=== PATIENT | male | born 1975 | race Caucasian/White ===

== ENCOUNTER 2018-08-27 07:29 | Emergency (ER) | payer OTHER, BC ==
[2018-08-27 07:59] VITALS: BP 139/104; PULSE 89; TEMP 99; BMI 31.1
--- NOTE | 2018-08-27 08:02 | PDOC ---
History of Present Illness - General Stated Complaint: POISON IESHA Time Seen by Provider: 08/27/18 08:01 - History of Present Illness Initial Comments: 08/27/18 08:07 The patient is a 43 year old male with a PMH of asthma (no hospitalizations/no intubations) who presents to our ED c/o 3 day h/o RUE puritus 12/01 to poison iesha exposure. Patient works for the [employer] and [employer] and states he spent most of Monday clearing out aris and believed he was exposed at this time. Notes he used some leftover steroid cream from a poison iesha exposure earlier this summer and came to our ED this morning because he ran out of the cream and was still itching. Denies any shortness of breath or systemic signs of infection including fevers/chills. NKDA Surgical: none reported Social: denies cigarettes, social alcohol, denies recreational drugs PMD: Dr. Casey Cedeno Past History - Past Medical History Allergies/Adverse Reactions: Allergies Allergy/AdvReac Type Severity Reaction Status Date / Time poison iesha extract Allergy Verified 08/27/18 07:56 Home Medications: Ambulatory Orders Betamethasone Dipropionate [Diprosone 0.05% Cream -] 1 applic TP BID #1 tube COPD: No - Suicide/Smoking/Psychosocial Hx Smoking History: Never smoked Hx Alcohol Use: No Drug/Substance Use Hx: No Review of Systems - Review of Systems Constitutional: No: Chills, Fever HEENTM: No: Blurred Vision, Double Vision Respiratory: No: Cough, Shortness of Breath Cardiac (ROS): No: Chest Pain, Lightheadedness, Palpitations, Syncope ABD/GI: No: Constipated, Diarrhea, Nausea, Vomiting *Physical Exam - Vital Signs Last Vital Signs Temp Pulse Resp BP Pulse Ox 99 F 89 16 139/104 H 100 08/27/18 07:50 08/27/18 07:50 08/27/18 07:50 08/27/18 07:50 08/27/18 07:50 - Physical Exam General Appearance: Yes: Nourished, Appropriately Dressed HEENT: positive: Normal Voice, Hearing Grossly Normal Neck: positive: Trachea midline, Supple Respiratory/Chest: positive: Lungs Clear, Normal Breath Sounds Cardiovascular: positive: S1, S2 Extremity: positive: Other (R ventral and lateral erythema w/scattered vesicles ; sole vesicle on L ventral forearm; 2+ radial pulses B/L) Neurologic: positive: Fully Oriented, Alert Medical Decision Making - Medical Decision Making 08/27/18 08:09 43 year old male with RUE erythema and scattered vesicles c/w poison iesha dermatitis. VS unremarkable. No signs of anaphylaxis. Will give prescription for outpatient steroid cream and discharge home with supportive care. I discussed the physical exam findings, ancillary test results and final diagnoses with the patient. I answered all of the patient's questions. The patient was satisfied with the care received and felt comfortable with the discharge plan and treatment plan. The patient will return to the Emergency Department with any new, persistent or worsening symptoms. *DC/Admit/Observation/Transfer Diagnosis at time of Disposition: Poison iesha - Discharge Dispostion Disposition: HOME Condition at time of disposition: Good Decision to Admit order: No - Prescriptions Prescriptions: Betamethasone Dipropionate [Diprosone 0.05% Cream -] 1 applic TP BID #1 tube - Referrals Referrals: Casey Cedeno MD [Primary Care Provider] - - Patient Instructions Printed Discharge Instructions: DI for Poison Iesha Allergy Additional Instructions: A steroid cream has been sent to your pharmacy. Please use as prescribed. Follow up with your primary care doctor in the next 3 days. Return to the Emergency Department for any new/worsening/concerning symptoms. - Post Discharge Activity
--- NOTE | 2018-08-27 08:12 | PDOC ---
Attending Attestation - Resident Resident Name: Tammie Valderrama - ED Attending Attestation I have performed the following: I have examined & evaluated the patient, The case was reviewed & discussed with the resident, I agree w/resident's findings & plan, Exceptions are as noted - HPI HPI: 08/27/18 08:23 43 years old no significant past medical history presents to the emergency department status post poison cathie exposure. Was exposed to his right arm while at work on Monday presents with classic rash itching moderate symptoms no other respiratory symptoms well-appearing persistent concent - Physicial Exam PE: 08/27/18 08:23 Vitals: Triage Vital signs reviewed General Appearance: no acute distress, well nourished well developed, Head: Atraumatic, Extremities: Full range of motion to all extremities, no cyanosis, clubbing, or edema Skin: Ulnar side of right arm with vesicular dermatitis consistent with poison cathie exposure/contact dermatitis Neuro: Strength intact to all extremities, Sensation intact to all extremities, gait normal Psych: normal mood, normal affect - Medical Decision Making 08/27/18 08:24 Contact dermatitis secondary to poison cathie exposure. We'll treat with steroid cream with antihistamine by mouth Findings, the need for follow-up and strict return instructions discussed with patient.
== END 2018-08-27 08:30 | disposition home or self-care (01) ==
LOC: JER 07:29
DX: L23.7 Allergic contact dermatitis due to plants, except food (principal); X58.XXXA Exposure to other specified factors, initial encounter; Y93.H2 Activity, gardening and landscaping; Y92.69 Other specified industrial and construction area as the place of occurrence of the external cause; Y99.0 Civilian activity done for income or pay
CPT/HCPCS: 99281-25

== ENCOUNTER 2018-12-29 06:58 | Emergency (ER) | payer OTHER, BC ==
[2018-12-29 07:32] VITALS: TEMP 98.5; BMI 31.0
--- NOTE | 2018-12-29 08:43 | PDOC ---
History of Present Illness - General Chief Complaint: Pain Stated Complaint: WORK INJURY/RIBS Time Seen by Provider: 12/29/18 08:20 - History of Present Illness Initial Comments: 12/29/18 09:20 43m with no pmh present with left sided rib pain after falling rib first against the bed of his truck. Pain worsens upon inspiration. No erythema, hematoma or deformity at the site. Past History - Past Medical History Allergies/Adverse Reactions: Allergies Allergy/AdvReac Type Severity Reaction Status Date / Time poison cathie extract Allergy Verified 12/29/18 07:32 Home Medications: Ambulatory Orders NK [No Known Home Medication] 12/29/18 COPD: No - Suicide/Smoking/Psychosocial Hx Smoking History: Never smoked Have you smoked in the past 12 months: No Information on smoking cessation initiated: No Hx Alcohol Use: No Drug/Substance Use Hx: No Review of Systems - Review of Systems Able to Perform ROS?: Yes Is the patient limited Mongolian proficient: No Constitutional: No: Symptoms Reported HEENTM: No: Symptoms Reported Respiratory: No: Symptoms reported Cardiac (ROS): No: Symptoms Reported ABD/GI: No: Symptoms Reported : No: Symptoms Reported Musculoskeletal: Yes: See HPI Integumentary: No: Symptoms Reported Neurological: No: Symptoms reported All Other Systems: Reviewed and Negative *Physical Exam - Vital Signs Last Vital Signs Temp Pulse Resp BP Pulse Ox 98.5 F 85 18 150/95 99 12/29/18 07:05 12/29/18 07:05 12/29/18 07:05 12/29/18 07:05 12/29/18 07:05 - Physical Exam General Appearance: Yes: Nourished, Appropriately Dressed. No: Apparent Distress HEENT: positive: EOMI, CATARINO, Normal ENT Inspection Respiratory/Chest: positive: Lungs Clear, Normal Breath Sounds. negative: Chest Tender, Respiratory Distress Cardiovascular: positive: Regular Rhythm, Regular Rate, S1, S2 Gastrointestinal/Abdominal: positive: Normal Bowel Sounds, Flat, Soft. negative : Tender Musculoskeletal: positive: Normal Inspection. negative: CVA Tenderness Extremity: positive: Normal Capillary Refill, Normal Inspection, Normal Range of Motion Integumentary: positive: Normal Color, Dry, Warm Neurologic: positive: Fully Oriented, Alert, Normal Mood/Affect, Normal Response , Motor Strength 5/5 Moderate Sedation - Procedure Monitoring Vital Signs: Procedure Monitoring Vital Signs Temperature 98.5 F 12/29/18 07:05 Pulse Rate 85 12/29/18 07:05 Respiratory Rate 18 12/29/18 07:05 Blood Pressure 150/95 12/29/18 07:05 O2 Sat by Pulse Oximetry (%) 99 12/29/18 07:05 ED Treatment Course - RADIOLOGY Radiology Studies Ordered: Category Date Time Status RIBS-LEFT SIDE [RAD] Stat Radiology 12/29/18 08:23 Ordered Medical Decision Making - Medical Decision Making 12/29/18 09:31 43m with rib pain after fall. . XRAY: possible old deformity over mid axillary 8th rib. *DC/Admit/Observation/Transfer Diagnosis at time of Disposition: Rib fracture - Discharge Dispostion Disposition: HOME Condition at time of disposition: Fair Decision to Admit order: No - Referrals Referrals: Casey Cedeno MD [Primary Care Provider] - - Patient Instructions Printed Discharge Instructions: DI for Rib Fracture Additional Instructions: Use incentive spirometer frequently every hour. Come back to the ER for any new, worsening or concerning symptom. - Post Discharge Activity
[2018-12-29] MEDS ORDERED: IBUPROFEN 400 MG TABLET (FP) PO ONE ×2 (09:37→09:43)
--- NOTE | 2018-12-29 10:05 | PDOC ---
Attending Attestation - Resident Resident Name: Ty Lebron - ED Attending Attestation I have performed the following: I have examined & evaluated the patient, The case was reviewed & discussed with the resident, I agree w/resident's findings & plan, Exceptions are as noted - HPI HPI: 12/29/18 10:12 43y M no pmhx presnents sp fall. Patient states that he tripped and fell yesterday striking his left chest wall onto the metal part of a lift gate. He has been having significant left-sided chest pain since then noted it was difficult to sleep due to the pain also endorses the pain is worse when he takes a deep breath and moves in certain positions. He denies any fever, chills , chest pain at rest, dyspnea on exertion, hemoptysis, leg swelling. Has not been taking any medications for pain - Physicial Exam PE: 12/29/18 10:13 GENERAL: The patient is awake, alert, and fully oriented, Nontoxic - in no acute distress. LUNGS: Breath sounds equal, clear to auscultation bilaterally. No wheezes, no rhonchi, no rales. MSK/CHEST: no rashes, +TTP to L lateral anterior chest wall, approx rib 6/7, no bruising/contusions appreciated HEART: Regular rate and rhythm, normal S1 and S2 without murmur, rub or gallop. ABDOMEN: Soft, nontender, No guarding, no rebound. No CVA tenderness - Medical Decision Making 12/29/18 10:14 Suspect for fracture versus contusion, chest x-ray suggestive of a throat fracture The patient will be given an incentive spirometer to minimize risk of atelectasis and pneumonia Recommend Tylenol and Motrin as needed, Percocet for breakthrough pain. The patient works for the [employer] and does a lot of heavy lifting and shoveling with impending snowstorms we'll give the patient 3 days at home for rest. Will have the pt fu with dr. Cedeno as needed Return precautions were discussed
[2018-12-29 11:04] VITALS: BP 147/99; PULSE 70
== END 2018-12-29 11:04 | disposition home or self-care (01) ==
LOC: JER 06:58
DX: S22.32XA Fracture of one rib, left side, initial encounter for closed fracture (principal); W17.89XA Other fall from one level to another, initial encounter; Y93.89 Activity, other specified; Y92.89 Other specified places as the place of occurrence of the external cause; Y99.0 Civilian activity done for income or pay
CPT/HCPCS: 71101-TC-LT-FY; 99283-25

== ENCOUNTER 2019-04-06 06:05 | Emergency (ER) | payer BC, OTHER | END 2019-04-06 06:31 | disposition home or self-care (01) | LOC: JER 06:05 ==

== ENCOUNTER 2023-03-29 13:07 | Emergency (ER) | payer OTHER ==
[2023-03-29 13:26] VITALS: BP 138/85; PULSE 84; RESP 18; TEMP 98.6; BMI 29.8
[2023-03-29] MEDS ORDERED: CYCLOBENZAPRINE HCL 10 MG TABLET (FP) PO ONE (14:46)
[2023-03-29] MEDS ORDERED: KETOROLAC TROMETHAMINE 30 MG/1 ML VIAL IM ONE (14:46)
[2023-03-29] MEDS ORDERED: KETOROLAC TROMETHAMINE 30 MG/1 ML VIAL ONE (14:49)
[2023-03-29] MEDS ORDERED: CYCLOBENZAPRINE HCL 10 MG TABLET (FP) ONE (14:49)
== END 2023-03-29 15:13 | disposition home or self-care (01) ==
LOC: JER 13:07 → JERFT 13:07
PROC: 3E0233Z Introduction of Anti-inflammatory into Muscle, Percutaneous Approach (ICD-10-PCS; principal; 2023-03-29)
DX: M25.562 Pain in left knee (principal); W18.40XA Slipping, tripping and stumbling without falling, unspecified, initial encounter; X50.1XXA Overexertion from prolonged static or awkward postures, initial encounter; Y92.480 Sidewalk as the place of occurrence of the external cause; Y99.0 Civilian activity done for income or pay
CPT/HCPCS: 73562-TC-LT-FY; 99284-25

== ENCOUNTER 2023-05-08 00:40 | Emergency (ER) | payer OTHER ==
[2023-05-08 00:44] VITALS: BP 150/80; PULSE 92; RESP 18; TEMP 98.1; BMI 27.1
[2023-05-08] MEDS ORDERED: DIPHTH,PERTUSS(ACELL),TET 0.5 ML DISP.SYRIN IM ONE ×2 (01:48→02:37)
== END 2023-05-08 02:48 | disposition home or self-care (01) ==
LOC: JER 00:40
PROC: 2W3CX1Z Immobilization of Right Lower Arm using Splint (ICD-10-PCS; principal; 2023-05-08)
PROC: 3E0234Z Introduction of Serum, Toxoid and Vaccine into Muscle, Percutaneous Approach (ICD-10-PCS; 2023-05-08)
DX: S92.511A Displaced fracture of proximal phalanx of right lesser toe(s), initial encounter for closed fracture (principal); M79.641 Pain in right hand; R22.31 Localized swelling, mass and lump, right upper limb; W01.0XXA Fall on same level from slipping, tripping and stumbling without subsequent striking against object, initial encounter; Y93.01 Activity, walking, marching and hiking
CPT/HCPCS: 73110-TC-RT-FY; 73130-TC-RT-FY; 90715; 99283-25

== ENCOUNTER 2023-09-28 09:08 | Emergency (ER) | payer OTHER ==
[2023-09-28 09:13] VITALS: BP 141/100; PULSE 77; RESP 18; TEMP 98.2; BMI 26.4
[2023-09-28] MEDS ORDERED: IBUPROFEN 600 MG TABLET (FP) PO ONE ×2 (09:13→09:15)
[2023-09-28] MEDS ORDERED: LIDOCAINE HCL 1%, 10 MG/ML (20ML VIAL) ONE (09:49)
[2023-09-28] MEDS ORDERED: LIDOCAINE HCL 1%, 10 MG/ML (50 mL VIAL) SQ ONE (09:55)
== END 2023-09-28 10:43 | disposition home or self-care (01) ==
LOC: FER 09:08
PROC: 0QSRXZZ Reposition Left Toe Phalanx, External Approach (ICD-10-PCS; principal; 2023-09-28)
DX: S92.412A Displaced fracture of proximal phalanx of left great toe, initial encounter for closed fracture (principal); W20.8XXA Other cause of strike by thrown, projected or falling object, initial encounter
CPT/HCPCS: 73630-TC-LT; 73660-TC-LT-FY; 99283-25

== ENCOUNTER 2024-04-23 10:26 | Emergency (ER) | payer OTHER ==
[2024-04-23 10:40] VITALS: BP 136/89; PULSE 63; RESP 20; TEMP 99.4; BMI 27.1
[2024-04-23] MEDS ORDERED: KETOROLAC TROMETHAMINE 30 MG/1 ML VIAL ONE (10:54)
[2024-04-23] MEDS ORDERED: LIDOCAINE 5% TOPICAL PATCH ONE (10:55)
[2024-04-23] MEDS: LIDOCAINE 5% TOPICAL PATCH TP ONE (11:04)
[2024-04-23] MEDS: KETOROLAC TROMETHAMINE 30 MG/1 ML VIAL IM ONE (11:05)
[2024-04-23] MEDS ORDERED: LIDOCAINE PATCH REMOVAL MC ONE (22:00)
== END 2024-04-23 12:07 | disposition home or self-care (01) ==
LOC: FER 10:26
PROC: 3E0133Z Introduction of Anti-inflammatory into Subcutaneous Tissue, Percutaneous Approach (ICD-10-PCS; principal; 2024-04-23)
DX: S33.5XXA Sprain of ligaments of lumbar spine, initial encounter (principal); X50.1XXA Overexertion from prolonged static or awkward postures, initial encounter; Y99.0 Civilian activity done for income or pay
CPT/HCPCS: 99284-25

== ENCOUNTER 2024-05-02 06:05 | Emergency (ER) | payer BC, OTHER ==
[2024-05-02 06:19] VITALS: BP 119/81; PULSE 67; RESP 17; TEMP 98; BMI 25.7
[2024-05-02] MEDS ORDERED: methylPREDNISolone NA SUCC 125 MG/2 ML VIAL ONE (06:24)
[2024-05-02] MEDS: methylPREDNISolone NA SUCC 125 MG/2 ML VIAL IM ONE (06:30)
== END 2024-05-02 06:37 | disposition home or self-care (01) ==
LOC: FER 06:05
PROC: 3E023GC Introduction of Other Therapeutic Substance into Muscle, Percutaneous Approach (ICD-10-PCS; principal; 2024-05-02)
DX: L23.7 Allergic contact dermatitis due to plants, except food (principal)
CPT/HCPCS: 99284-25

== ENCOUNTER 2024-05-08 05:49 | Emergency (ER) | payer BC ==
[2024-05-08 05:58] VITALS: BP 123/83; PULSE 67; RESP 18; TEMP 98.1; BMI 25.7
== END 2024-05-08 06:42 | disposition home or self-care (01) ==
LOC: FER 05:49
DX: L23.7 Allergic contact dermatitis due to plants, except food (principal); L29.9 Pruritus, unspecified
CPT/HCPCS: 99283-25